=== PATIENT | male | born 1975 | race Asian ===

== ENCOUNTER 2022-01-06 21:07 | Emergency (ER) | payer MEDICAID ==
[~2022-01-06] VITALS: Ht 165.1 cm; Wt 81.8 kg
[2022-01-06] MEDS ORDERED: SACU1TAB7 PO (21:41)
[2022-01-06] MEDS ORDERED: BISO5TAB33 PO (21:41)
[2022-01-06] MEDS ORDERED: SODIUM CHLORIDE 0.9% 250 ML IRRIG SOLUTION BOTTLE IRRIG ONE (23:00)
[2022-01-06] MEDS ORDERED: PERTUSS(ACELL),DIPH,TET VAC/PF 0.5 ML SYRINGE IM. ONE (23:00)
[2022-01-06] MEDS ORDERED: HYDROCODONE/ACETAMINOPHEN 5-325 MG TABLET PO ONE (23:00)
[2022-01-06] MEDS ORDERED: DOXYCYCLINE HYCLATE 100 MG TABLET PO ONE (23:45)
[2022-01-07] MEDS ORDERED: HYDR-4723 PO (00:49)
[2022-01-07] MEDS ORDERED: DOXY-354 PO (00:49)
[2022-01-07 00:54] VITALS: BP 141/89
== END 2022-01-07 01:59 | disposition home or self-care (01) ==
LOC: EMS 21:07
DX: S61.031A Puncture wound without foreign body of right thumb without damage to nail, initial encounter (principal); T63.511A Toxic effect of contact with stingray, accidental (unintentional), initial encounter; M79.644 Pain in right finger(s); I10 Essential (primary) hypertension; Y92.89 Other specified places as the place of occurrence of the external cause; Y93.89 Activity, other specified; Y99.8 Other external cause status
CPT/HCPCS: 90471; 90715; 99283

== ENCOUNTER 2024-05-14 17:13 | Emergency (ER) | payer BC, MEDICAID ==
[~2024-05-14] VITALS: Ht 165.1 cm; Wt 72.7 kg
[~2024-05-14 17:13] MED LIST: BISO5TAB33 PO; DOXY-354 PO; HYDR-4062 PO; SACU1TAB7 PO
[2024-05-14] MEDS ORDERED: ROSU20TA98 PO (17:17)
[2024-05-14] MEDS ORDERED: SACU1TAB PO (17:17)
[2024-05-14] MEDS ORDERED: BISO5TAB13 PO (17:17)
[2024-05-14] MEDS ORDERED: ASPI-1450 PO (17:17)
[2024-05-14 17:22] VITALS: TEMP 100.2
[2024-05-14 18:36] LABS: COVID AG,FIA SOURCE NASAL SWAB
[2024-05-14 19:03] LABS: SARS-COV2 (COVID) ANTIGEN,FIA Negative (Negative)
[2024-05-14 19:04] LABS: INFLUENZA TYPE A NEGATIVE FOR TYPE A (NEGATIVE); INFLUENZA TYPE B POSITIVE FOR TYPE B (NEGATIVE)
[2024-05-14 19:06] LABS: RAPID GROUP A STREP NEGATIVE (NEGATIVE)
[2024-05-14] MEDS: ACETAMINOPHEN 500 MG TABLET PO ONE (19:35)
[2024-05-14] MEDS: IBUPROFEN 600 MG TABLET PO ONE (19:40)
[2024-05-14] MEDS ORDERED: BENZ-227 PO (19:44)
[2024-05-14 19:46] VITALS: BP 121/75; PULSE 98; RESP 18; O2SAT 98
== END 2024-05-14 19:55 | disposition home or self-care (01) ==
LOC: EMS 17:13
DX: J10.1 Influenza due to other identified influenza virus with other respiratory manifestations (principal); R11.0 Nausea; I10 Essential (primary) hypertension; Z79.82 Long term (current) use of aspirin; Z79.899 Other long term (current) drug therapy; Z20.822 Contact with and (suspected) exposure to COVID-19
CPT/HCPCS: 87430; 87804; 99283